=== PATIENT | male | born 1990 | race Caucasian/White ===

== ENCOUNTER 2017-10-16 11:22 | Emergency (ER) | payer MEDICAID, OTHER ==
[~2017-10-16] VITALS: Ht 175.3 cm; Wt 62.2 kg
[2017-10-16] MEDS ORDERED: FLUORESCEIN OPHTHALMIC 1 MG STRIP ONE (11:39)
[2017-10-16] MEDS ORDERED: PROPARACAINE OPHTH 0.5%, 15ML ONE (11:39)
[2017-10-16 12:37] VITALS: BP 130/75
== END 2017-10-16 13:10 | disposition home or self-care (01) ==
LOC: ED 12:34
DX: T15.02XA Foreign body in cornea, left eye, initial encounter (principal); X58.XXXA Exposure to other specified factors, initial encounter; Y93.89 Activity, other specified; Y92.89 Other specified places as the place of occurrence of the external cause; Y99.8 Other external cause status
CPT/HCPCS: 65222